=== PATIENT | male | born 1985 | race Caucasian/White ===

== ENCOUNTER 2018-04-30 11:43 | Emergency (ER) | payer MEDICAID ==
[2018-04-30] MEDS ORDERED: LIDOCAINE HCL 1% 10 ML VIAL ONE ×2 (12:27→12:30)
[2018-04-30] MEDS ORDERED: LIDOCAINE HCL 2%/EPI 1:200,000/PF 20 ML VIAL INJ ONE (12:30)
[2018-04-30] MEDS ORDERED: LIDOCAINE HCL 1%/EPI 1:200,000/PF 10 ML VIAL INJ ONE (12:30)
[2018-04-30] MEDS ORDERED: CEPHALEXIN MONOHYDRATE 500 MG CAPSULE PO ONE (13:00)
[2018-04-30] MEDS ORDERED: SULFAMETHOX/TRIMETH DS 800-160 MG/TABLET PO ONE (13:00)
== END 2018-04-30 13:19 | disposition home or self-care (01) ==
LOC: EMS 11:46
DX: L02.413 Cutaneous abscess of right upper limb (principal); F17.210 Nicotine dependence, cigarettes, uncomplicated; F11.90 Opioid use, unspecified, uncomplicated; Z02.89 Encounter for other administrative examinations
CPT/HCPCS: 10060; 99283; J2001; J3490

== ENCOUNTER 2018-09-08 22:52 | Emergency (ER) | payer MEDICAID ==
[~2018-09-08] VITALS: Ht 177.8 cm; Wt 68.2 kg
[2018-09-09] MEDS ORDERED: VANCOMYCIN HCL 1.5 GM in DEXTROSE 5%-WATER 250 ML IV ONE (02:45)
[2018-09-09] MEDS ORDERED: IOVERSOL 350 MG/ML 100 ML VIAL ONE (02:51)
[2018-09-09] MEDS ORDERED: SODIUM CHLORIDE 0.9% 0 ML ONE (02:51)
[2018-09-09 03:28] VITALS: BP 138/78
== END 2018-09-09 04:25 | disposition left against medical advice (07) ==
LOC: EMS 22:53
DX: L02.413 Cutaneous abscess of right upper limb (principal); F17.210 Nicotine dependence, cigarettes, uncomplicated; F15.90 Other stimulant use, unspecified, uncomplicated; F11.90 Opioid use, unspecified, uncomplicated; Z88.1 Allergy status to other antibiotic agents; Z88.2 Allergy status to sulfonamides; Z88.8 Allergy status to other drugs, medicaments and biological substances
CPT/HCPCS: J3370; J7050; J7060